=== PATIENT | male | born 1955 | race African-American/Black ===

== ENCOUNTER 2016-09-09 21:48 | Emergency (ER) | payer OTHER ==
[~2016-09-09] VITALS: Ht 193 cm; Wt 108.9 kg
[~2016-09-09 21:48] MED LIST: AMLO10TA2 PO
[2016-09-09 22:00] VITALS: BP 144/83
[2016-09-09] MEDS ORDERED: AZITHROMYCIN 250 MG TABLET ONE (23:16)
[2016-09-09] MEDS ORDERED: AZITHROMYCIN 250 MG TABLET PO ONE (23:30)
== END 2016-09-09 23:26 | disposition home or self-care (01) ==
LOC: ER 21:50
DX: J18.1 Lobar pneumonia, unspecified organism (principal); I51.7 Cardiomegaly; I10 Essential (primary) hypertension; F10.20 Alcohol dependence, uncomplicated; Z91.018 Allergy to other foods
CPT/HCPCS: 71010-TC; A4606; Z7610

== ENCOUNTER 2018-06-23 04:42 | Inpatient (IN) | payer OTHER ==
[~2018-06-23] VITALS: Ht 188 cm; Wt 94.8 kg
[~2018-06-23 04:42] MED LIST changes: -AMLO10TA2 PO; +AMLO10TA7 PO
--- NOTE | 2018-06-23 04:55 | NUR ---
PT BIBRA FROM HOME COMPLAINING OF RIGHT SHOULDER PAIN AFTER GLF. NOTED LIMITED ROM RIGHT UPPER EXTERMITY. PT DENIES LOC, HEAD INJURY, RADIATION OF PAIN. PT IS AAOX4. RESPIRATIONS EVEN AND UNLABORED. NO ACUTE DISTRESS NOTED.
[2018-06-23 05:43] LABS: BASOPHILS # (AUTO) 0.1 /CMM (0.0-0.2); BASOPHILS % (AUTO) 1.1 % (0.0-2.0); EOSINOPHILS % (AUTO) 6.7 % (0.0-6.0); HEMATOCRIT 45 % (39-51); HEMOGLOBIN 15.2 g/dL (13.5-17.5); LYMPHOCYTES # (AUTO) 1.2 /CMM (0.8-4.8); LYMPHOCYTES % (AUTO) 17.9 % (20.0-44.0); MEAN CORPUSCULAR HGB CONC 34 g/dl (31.0-36.0); MEAN CORPUSCULAR VOLUME 94 fL (80-96); MONOCYTES # (AUTO) 0.9 /CMM (0.1-1.30); MONOCYTES % (AUTO) 13.1 % (2.0-12.0); NEUTROPHILS # (AUTO) 4.1 /CMM (1.8-8.9); NEUTROPHILS % (AUTO) 61.2 % (43.0-81.0); PLATELET COUNT (AUTO) 219 /CMM (150-450); RED BLOOD CELL COUNT(AUTO) 4.75 MIL/uL (4.5-6.0); WHITE BLOOD COUNT (AUTO) 6.7 K/uL (4.3-11.0)
[2018-06-23 05:52] LABS: CALCIUM, SERUM 9.1 mg/dL (8.5-10.1); CREATININE 1.1 mg/dL (0.6-1.3); POTASSIUM 3.7 mmol/L (3.5-5.1)
[2018-06-23] MEDS ORDERED: HYDROCODONE/APAP 5/325MG 1 EACH TABLET ONE (06:46)
[2018-06-23] MEDS ORDERED: HYDROCODONE/APAP 5/325MG 1 EACH TABLET PO ONE (07:00)
--- NOTE | 2018-06-23 07:13 | NUR ---
GAVE REPORT TO BEVERLY GUADALUPE RN FOR JONATHAN
--- NOTE | 2018-06-23 07:25 | NUR ---
RECEIVED REPORT FROM JONATHAN ROY, PT IS AAOX4, NOT IN RESPIRATORY DISTRESS, V/S STABLE, AWAITING ROOM.
--- NOTE | 2018-06-23 07:50 | NUR ---
DR. BELCHER AT BEDSIDE FOR EVAL.
[2018-06-23] MEDS ORDERED: OXYC30TA2 PO (08:07)
[2018-06-23] MEDS ORDERED: ATOR10TA PO (08:07)
[2018-06-23] MEDS ORDERED: DOCU250C88 PO (08:07)
[2018-06-23] MEDS ORDERED: IBUP-1490 PO (08:07)
[2018-06-23] MEDS ORDERED: IV NS 0.9% 1,000 ML IV PRN (08:41)
[2018-06-23] MEDS ORDERED: ACETAMINOPHEN 325 MG TABLET PO PRN (09:00)
[2018-06-23] MEDS ORDERED: ZOLPIDEM TARTRATE 5 MG TABLET PO PRN (09:00)
[2018-06-23] MEDS ORDERED: Z GUARD REMEDY 2 OZ OINT TP PRN (09:00)
[2018-06-23] MEDS: ENOXAPARIN SODIUM 40 MG/0.4 ML DISP.SYRIN SQ SCH (09:00)
[2018-06-23] MEDS ORDERED: ONDANSETRON HCL/PF 4 MG/2 ML VIAL IVP PRN (09:00)
[2018-06-23] MEDS ORDERED: MAG HYDROX/AL HYDROX/SIMETH 30 ML UDC PO PRN (09:00)
[2018-06-23] MEDS ORDERED: MAGNESIUM HYDROXIDE 30 ML UDC PO PRN (09:00)
--- NOTE | 2018-06-23 09:05 | NUR ---
POWER PLANT MECHANICINTERACTIVE DESIGNER NOTE RECEIVED PATIENT VIA GURNEY FROM EMERGENCY ROOM. PATIENT IS ALERT AND ORIENTED x4 NO FACIAL GRIMACING NOTED FOR PAIN. NO SOB OR DISTRESS NOTED ON ROOM AIR TOLERATING WELL ON 96%. FULL CODE NO ISOLATION. ALLERGY TO SCALLOPS. CONTINENT-USES URINAL. LEFT FOREARM INTACT AND PATENT 20G NO REDNESS OR SWELLING NOTED. REFUSED SKIN ASSESSMENT AT THIS TIME. MRSA SWAB DONE AND SENT TO LAB. CARDIAC DIET. PER ER NURSE PATIENT USES CRUTCHES AT HOME AND THIS MORNING AROUND 5 AM FELL AND RIGHT SHOULDER. PATIENT STATED HE FELT CHEST PAIN AND WAS BROUGHT IN BY AMBULANCE. AT THIS TIME PATIENT HAS NO CHEST PAIN NOTED. WILL CONTINUE TO MONITOR THROUGHOUT SHIFT TELE MONITOR- SB 58.
--- NOTE | 2018-06-23 09:12 | NUR ---
REPORT GIVEN TO JONATHAN MARIE AT [facility] FOR JONATHAN.
[2018-06-23 09:15] VITALS: BP 122/81
--- NOTE | 2018-06-23 09:26 | NUR ---
PUSHER OPERATOR NOTE SHRUB GROWER AT BEDSIDE
--- NOTE | 2018-06-23 09:40 | NUR ---
MILL ROLL OPERATOR NOTE PATIENT NOTED WITH ST-120 WITH BBB
[2018-06-23] MEDS: HYDROCODONE/APAP 5/325MG 1 EACH TABLET PO PRN ×2 (11:40→19:47)
[2018-06-23] MEDS ORDERED: CARV3.122 PO (11:52)
[2018-06-23] MEDS ORDERED: TAMS-12 PO (11:52)
[2018-06-23] MEDS ORDERED: LISI10TA5 PO (11:52)
--- NOTE | 2018-06-23 11:53 | NUR ---
GEOPHYSICS TEACHER NOTE PATIENT REQUESTING FOR PAIN MEDICATION FOR 10/10 NECK PAIN. REPOSITIONED PATIENT STILL UNCOMFORTABLE. NORCO 5/325 PO GIVEN. WILL REASSESS EFFECTIVENESS
[2018-06-23 12:00] VITALS: BP 132/84
--- NOTE | 2018-06-23 13:23 | NUR ---
BUFFER AUTOMATIC NOTE PER PHYSICAL THERAPIST, PATIENT NEEDS STANDBY ASSISTANCE. ALSO REQUIRES OT EVAL FOR RIGHT SHOULDER MOBILITY DUE TO GLF AT HOME
[2018-06-23] MEDS ORDERED: hydrALAZINE HCL 25 MG TABLET PO PRN (14:00)
[2018-06-23] MEDS: IV NS 0.9% 1,000 ML IV PRN ×2 (15:14→21:34)
[2018-06-23] MEDS: ASPIRIN EC 325 MG TABLET.DR PO SCH (15:14)
--- NOTE | 2018-06-23 15:28 | NUR ---
SALES VICE PRESIDENT NOTE AT THIS TIME PATIENT DOES NOT WANT TO SIGN CONSENT FOR NM STRESS TEST. PATIENT STATED " I WILL THINK ABOUT IT AND LET YOU KNOW IF I WANT IT DONE OR NOT" INFORMED DR BERTRAND
[2018-06-23 16:00] VITALS: BP 133/84
--- NOTE | 2018-06-23 18:36 | NUR ---
BATCH MAKER CLOSING NOTE PATIENT IS ALERT AND ORIENTED x4 NO FACIAL GRIMACING NOTED FOR PAIN. NO SOB OR DISTRESS NOTED ON ROOM AIR TOLERATING WELL ON 96%.CONTINENT-USES URINAL. LEFT FOREARM INTACT AND PATENT 20G NO REDNESS OR SWELLING NOTED WITH IV FLUIDS RUNNING AT 125 ML/HR. REFUSED SKIN ASSESSMENT.AT THIS TIME PATIENT HAS NO CHEST PAIN NOTED. ALL DUE MEDICATIONS GIVEN ORDERED. ALL NURSING CARE NEEDS ATTENDED TO. PATIENT SCHEDULED TO HAVE STRESS TEST WITH -CARDIO TOMORROW 06/24/18 CONSENT TO BE OBTAINED. NPO AT MIDNIGHT NO TEA OR COFFEE IF CONSENTING TO STRESS TEST. WILL ENDORSE TO PUBLIC POLICY ASSOCIATE NURSE FOR JONATHAN TELE MONITOR- SR 78.
--- NOTE | 2018-06-23 19:22 | NUR ---
ELECTRONICS DEPARTMENT MANAGER NOTE RECEIVED PT IN STABLE CONDITION A&O X4. NO SIGNS OF SOB OR DISTRESS NOTED. PT. AWAKE AND RESTING IN BED. CONSENT FOR TOMORROW'S STRESS TEST OBTAINED. LFA #20G IVF INFUSING AND TOLERATING WELL. SAFETY MEASURES IN PLACE: BED LOW AND LOCKED POSITION, UPPER BED RAILS UP X2, AND CALL LIGHT WITHIN REACH. WILL CONT TO MONITOR.
[2018-06-23 20:00] VITALS: BP 148/88
--- NOTE | 2018-06-23 20:29 | NUR ---
SALT WASHER NOTE PT REFUSING SKIN ASSESSMENT AFTER MULTIPLE ATTEMPTS.
[2018-06-23] MEDS: ATORVASTATIN 40 MG TABLET PO SCH (21:10)
[2018-06-23] MEDS: CARVEDILOL 3.125 MG TABLET PO SCH (21:10)
[2018-06-24] MEDS: IV NS 0.9% 1,000 ML IV PRN (05:46)
--- NOTE | 2018-06-24 06:13 | NUR ---
6TH GRADE TEACHER NOTE PT IN STABLE CONDITION A&O X4. NO SIGNS OF SOB OR DISTRESS NOTED. PT. RESTING IN BED. PT NPO SINCE MIDNIGHT. LFA #20G IVF NS @75 ML/HR INFUSING AND TOLERATING WELL. SAFETY MEASURES IN PLACE: BED LOW AND LOCKED POSITION, UPPER BED RAILS UP X2, AND CALL LIGHT WITHIN REACH. WILL CONT TO MONITOR AND ENDORSE TO NEXT SHIFT FOR JONATHAN.
--- NOTE | 2018-06-24 07:20 | NUR ---
JACK SPINNER OPENING NOTES RECEIVED PT LAYING IN BED, RESTING COMFORTABLY. PT IS EASILY AROUSABLE, A/O X4. RESPIRATIONS ARE EVEN AND UNLABORED, NOT IN ANY ACUTE DISTRESS NOTED. NO C/O CHEST PAIN, SOB, N/V. PT IS AWARE HE IS NPO D/T STRESS TEST. IV SITE TO LFA INTACT, NO INFILTRATION NOTED. DRESSING KEPT CLEAN AND DRY. SAFETY MEASURES ARE IN PLACE. INSTRUCTED PT TO USE CALL LIGHT WHEN ASSISTANCE IS NEEDED, CALL LIGHT IS LEFT WITHIN REACH. WILL MONITOR THROUGHOUT SHIFT FOR CONTINUITY OF CARE.
[2018-06-24 08:00] VITALS: BP 156/81
[2018-06-24] MEDS: ASPIRIN EC 325 MG TABLET.DR PO SCH (08:45)
[2018-06-24] MEDS: CARVEDILOL 3.125 MG TABLET PO SCH ×2 (08:45→21:29)
[2018-06-24] MEDS: AMLODIPINE BESYLATE 5 MG TABLET PO SCH (08:45)
[2018-06-24] MEDS: ENOXAPARIN SODIUM 40 MG/0.4 ML DISP.SYRIN SQ SCH (08:53)
[2018-06-24 09:00] LABS: BASOPHILS # (AUTO) 0.1 /CMM (0.0-0.2); BASOPHILS % (AUTO) 1.3 % (0.0-2.0); EOSINOPHILS % (AUTO) 12.9 % (0.0-6.0); HEMATOCRIT 45 % (39-51); HEMOGLOBIN 15.5 g/dL (13.5-17.5); LYMPHOCYTES # (AUTO) 1.8 /CMM (0.8-4.8); LYMPHOCYTES % (AUTO) 25.5 % (20.0-44.0); MEAN CORPUSCULAR HGB CONC 34 g/dl (31.0-36.0); MEAN CORPUSCULAR VOLUME 95 fL (80-96); MONOCYTES % (AUTO) 14.5 % (2.0-12.0); NEUTROPHILS # (AUTO) 3.2 /CMM (1.8-8.9); NEUTROPHILS % (AUTO) 45.8 % (43.0-81.0); PLATELET COUNT (AUTO) 221 /CMM (150-450); RED BLOOD CELL COUNT(AUTO) 4.75 MIL/uL (4.5-6.0)
[2018-06-24 09:15] LABS: CALCIUM, SERUM 8.8 mg/dL (8.5-10.1); MAGNESIUM 1.8 mg/dL (1.8-2.4); PHOSPHORUS 3.1 mg/dL (2.5-4.9); POTASSIUM 3.8 mmol/L (3.5-5.1)
[2018-06-24] MEDS: HYDROCODONE/APAP 5/325MG 1 EACH TABLET PO PRN (10:05)
--- NOTE | 2018-06-24 10:37 | NUR ---
LOGISTICS VICE PRESIDENT NOTES-- PT REFUSES IV FLUIDS AT THIS TIME. EXPLAINED THE IMPORTANCE OF IV FLUIDS AND STAYING HYDRATED SINCE PT IS NPO AT THIS TIME. PT STATED "NO I DONT WANT IT RIGHT NOW. MAYBE LATER." WILL CONTINUE TO MONITOR.
[2018-06-24] MEDS ORDERED: DOCUSATE SODIUM 250 MG CAPSULE PO PRN (11:30)
[2018-06-24 12:00] VITALS: BP 151/87
--- NOTE | 2018-06-24 12:10 | NUR ---
LAYOUT TECHNICIAN NOTES-- PT P/U BY ACID BATH MIXER VIA WHEELCHAIR IN STABLE CONDITION FOR STRESS TEST.
[2018-06-24] MEDS ORDERED: oxyCODONE IR immediate release 5 MG PO PRN (13:00)
[2018-06-24] MEDS ORDERED: REGADENOSON 0.4 MG/5 ML DISP.SYRIN IVP ONE (13:00)
--- NOTE | 2018-06-24 13:54 | NUR ---
TECHNICIAN NOTES-- PT CAME BACK FROM STRESS TEST IN STABLE CONDITION VIA W/C. NOT IN ANY APPARENT DISTRESS NOTED. WILL CONTINUE TO MONITOR.
[2018-06-24 16:00] VITALS: BP 146/92
[2018-06-24] MEDS ORDERED: CARVEDILOL 3.125 MG TABLET PO SCH (17:00)
--- NOTE | 2018-06-24 17:30 | NUR ---
PAY AGENT NOTES-- RECEIVED A CALL FROM [facility] WITH RESULTS FOR POSITIVE MRSA. CONTACT PRECAUTIONS TAKEN. PT MADE AWARE.
--- NOTE | 2018-06-24 18:29 | NUR ---
RETORT FEEDER GROUND BONE CLOSING NOTES ALL DUE MEDS GIVEN, NEEDS MET AND RENDERED. PT IS A/O X4, AFEBRILE. RESPIRATIONS ARE EVEN AND UNLABORED, NOT IN ANY ACUTE DISTRESS NOTED. PT DENIES ANY PAIN AT THIS TIME, NO C/O SOB, N/V NOTED. IV SITE TO LFA INTACT, NO INFILTRATION NOTED. DRESSING KEPT CLEAN AND DRY. PT REFUSES IV FLUIDS TO BE RUNNING, EXPLAINED THE RISKS AND BENEFITS X3, STILL NOTED WITH NONCOMPLIANCE. SAFETY MEASURES ARE IN PLACE. REMINDED PT TO USE CALL LIGHT WHEN ASSISTANCE IS NEEDED, CALL LIGHT IS LEFT WITHIN REACH. WILL ENDORSE TO NEXT SHIFT FOR CONTINUITY OF CARE.
--- NOTE | 2018-06-24 19:15 | NUR ---
TELE/RN OPENING NOTES PT AWAKE, TALKING ON THE PHONE. A/OX4. ON ROOM AIR, BREATHING EVEN AND UNLABORED. DENIES SOB, CP OR N/V. IN NO ACUTE DISTRESS. CURRENTLY OFF EXTERNAL PRODUCT SAFETY LEAD. WILL PLACE ON PT. IV TO LFA PATENT AND INTACT. REFUSING IVF AT THIS TIME, EDUCATED X3 HOWEVER PT STILL REFUSING. BED IN LOW/LOCKED POSITION WITH CALL LIGHT IN REACH. BILATERAL UPPER SIDE RAILS IN PLACE. ON ISOLATION PRECAUTIONS FOR MRSA NARES. WILL CONTINUE TO MONITOR
[2018-06-24 20:00] VITALS: BP 139/75
[2018-06-24] MEDS: MUPIROCIN OINT 2% 22 GM TUBE SCH (21:29)
[2018-06-24] MEDS: ATORVASTATIN 40 MG TABLET PO SCH (21:29)
--- NOTE | 2018-06-24 22:55 | NUR ---
TELE/RN NOTES PT VERBALIZED CONCERN REGARDING SKIN TEARS TO LEFT RING FINGER AND RIGHT FOOT. PHOTOS TAKEN, CLEANSED WITH NS, PAT DRY AND COVERED WITH BAND-AID. WILL CONTINUE TO MONITOR
--- NOTE | 2018-06-25 00:45 | NUR ---
TELE/RN NOTES IV TO LFA DISLODGED AND LEAKING. REFUSING REINSERTION OF IV. EXPLAINED RISKS/BENEFITS. PT STILL STRONGLY REFUSING. ASKED TO COME BACK LATER.
[2018-06-25 04:00] VITALS: BP 168/82
--- NOTE | 2018-06-25 04:45 | NUR ---
TELE/RN NOTES PT WITH ELEVATED BP- 177/88, 175/100. RECHECKED 15 MINS LATER, 169/84 HR 69. DENIES PAIN. ADMINISTERED PRN APRESOLINE. WILL MONITOR
--- NOTE | 2018-06-25 06:39 | NUR ---
TELE/RN CLOSING NOTES PT WITH EYES CLOSED. REMAINS ON ROOM AIR, BREATHING EVEN AND UNLABORED. A/OX4. DENIES SOB, CP, N/V, IN NO ACUTE DISTRESS. ON EXTERNAL TOOL AND GAUGE INSPECTOR SHOWING SR WITH BBB AND PAC, HR 63. STILL REFUSING IV INSERTION AT THIS TIME. NO SIGNIFICANT CHANGES OVERNIGHT. ALL NEEDS MET. KEPT PT COMFORTABLE POSSIBLE. BED IN LOW/LOCKED POSITION WITH CALL LIGHT IN REACH. BILATERAL UPPER SIDE RAILS IN PLACE. WILL ENDORSE TO DAY SHIFT RN JONATHAN.
[2018-06-25 08:00] VITALS: BP 158/78
--- NOTE | 2018-06-25 08:00 | NUR ---
TELE/RN AM NOTES PT AWAKE, TALKING ON THE PHONE. A/OX4. ON ROOM AIR, BREATHING EVEN AND UNLABORED. DENIES SOB, CP OR N/V. IN NO ACUTE DISTRESS. ON EXTERNAL CASKET UPHOLSTERER FOR TELE WITH SR WITH BBB AND PAC HR 63-130'S BUT ASYMPTOMATIC.REFUSING IVF H/L INSERTION INSPITE OF EXPLAINING ITS IMPORTANCE. EDUCATED X3.PT STILL REFUSING. BED IN LOW/LOCKED POSITION WITH CALL LIGHT IN REACH. BILATERAL UPPER SIDE RAILS IN PLACE. ON CONTACT ISOLATION PRECAUTIONS FOR MRSA NARES. PT IS SO ANXIOUS AND EAGER TO GO HOME.WILL CONTINUE TO MONITOR
[2018-06-25] MEDS ORDERED: TAMSULOSIN 0.4 MG CAP.SR.24H PO SCH (09:00)
[2018-06-25] MEDS ORDERED: AMLODIPINE BESYLATE 10 MG TABLET PO SCH (09:00)
[2018-06-25] MEDS ORDERED: LISINOPRIL (10MG) 10 MG TABLET PO SCH (09:00)
[2018-06-25] MEDS ORDERED: ATORVASTATIN 10 MG TABLET PO SCH (09:00)
[2018-06-25] MEDS: CARVEDILOL 3.125 MG TABLET PO SCH (09:22)
[2018-06-25 09:23] VITALS: BP 158/78
[2018-06-25] MEDS: AMLODIPINE BESYLATE 5 MG TABLET PO SCH (09:23)
[2018-06-25] MEDS: ASPIRIN EC 325 MG TABLET.DR PO SCH (09:23)
[2018-06-25] MEDS: MUPIROCIN OINT 2% 22 GM TUBE SCH (09:31)
[2018-06-25] MEDS: ENOXAPARIN SODIUM 40 MG/0.4 ML DISP.SYRIN SQ SCH (09:31)
[2018-06-25] MEDS ORDERED: ASPI-605 PO (12:34)
--- NOTE | 2018-06-25 14:35 | NUR ---
DISCHARGED PT HOME WITH STABLE V/S.DENYING ANY PAIN OR DISTRESS.PT'S BELONGINGS AND DISCHARGE INSTRUCTIONS GIVEN TO PT SPECIALLY ABOUT CONTINUING MRSA NARES SWAB TREATMENT WITH BACTROBAN OINTMENT FOR ONE WEEK.PT CALLED ER FOR TRANSPORT.
== END 2018-06-25 14:45 | disposition home or self-care (01) | DRG 303 ==
LOC: ER 04:44 → TELE 08:42 → MED 06-25 09:05
PROVIDERS: ADMIT Internal Medicine; ATTEND Internal Medicine
DX: I25.10 Atherosclerotic heart disease of native coronary artery without angina pectoris (principal); I50.22 Chronic systolic (congestive) heart failure; R55 Syncope and collapse; I42.9 Cardiomyopathy, unspecified; E86.0 Dehydration; E78.5 Hyperlipidemia, unspecified; I10 Essential (primary) hypertension; N40.0 Benign prostatic hyperplasia without lower urinary tract symptoms; I44.7 Left bundle-branch block, unspecified; I11.0 Hypertensive heart disease with heart failure; Z82.49 Family history of ischemic heart disease and other diseases of the circulatory system; Z90.81 Acquired absence of spleen; G89.29 Other chronic pain
CPT/HCPCS: 36415; 71045-TC; 80048-TC; 80061-TC; 83735-TC; 84100-TC; 84484-TC; 85025-TC; 85730-TC; 87081-TC; 93307-TC; 93308-TC; A6253; A9502; G0378; J1650; J2785; J7030